=== PATIENT | male | born 1995 | race Caucasian/White ===

== ENCOUNTER 2019-04-24 21:45 | Emergency (ER) | payer OTHER ==
[~2019-04-24] VITALS: Ht 165.1 cm; Wt 88.5 kg
[~2019-04-24 21:45] MED LIST: IBUPROFEN 800800 MG PO; LEVSIN0.125 MG PO; ONDANSETRON ODT8 MG PO; PRILOSEC OTC20 MG PO
[2019-04-24 22:22] LABS: ABSOLUTE NEUTROPHILS 5.7 thou/uL (1.4-8.2); BASOPHILS 1.1 % (0.0-2.0); EOSINOPHILS 0.8 % (0.0-3.0); HEMATOCRIT 47.4 % (42.0-52.0); HEMOGLOBIN 16.1 gm/dL (14.0-18.0); LYMPHOCYTES 36.2 % (24.0-44.0); MCH 28.5 pg (26.0-34.0); MCHC 33.9 g/dL (28.0-37.0); MONOCYTES 8.9 % (1.0-8.0); PLATELET COUNT 183 thou/uL (150-400); RBC 5.64 mil/uL (4.50-6.00); RDW 13.6 % (10.5-14.5); WBC 11.8 thou/uL (4.0-11.0)
[2019-04-24 22:41] LABS: ANION GAP 12 mmol/L (7-16); BUN 14 mg/dL (7-18); CHLORIDE 101 mmol/L (98-107); CO2 25 mmol/L (21-32); CREATININE 0.7 mg/dL (0.7-1.3); GLUCOSE 95 mg/dL (74-106); POTASSIUM 4.1 mmol/L (3.5-5.1); SODIUM 138 mmol/L (136-145)
[2019-04-24 22:52] LABS: ALBUMIN 4.2 g/dL (3.4-5.0); LIPASE 126 U/L (73-393); SGOT 22 U/L (15-37); SGPT 39 U/L (30-65); TOTAL BILIRUBIN 0.3 mg/dL (<0.1-1.0); TOTAL PROTEIN 7.8 g/dL (6.4-8.2); TROPONIN-I <0.06 ng/mL (<0.06)
[2019-04-24 22:56] LABS: URINE BILIRUBIN NEGATIVE (Negative); URINE BLOOD NEGATIVE (Negative); URINE CLARITY CLEAR; URINE COLOR YELLOW; URINE GLUCOSE-RANDOM* NEGATIVE (Negative); URINE KETONES NEGATIVE (Negative); URINE LEUKOCYTES-REFLEX NEGATIVE (Negative); URINE NITRITE-REFLEX NEGATIVE (Negative); URINE PROTEIN (DIPSTICK) NEGATIVE (Negative); URINE SPECIFIC GRAVITY 1.015 (1.005-1.035); URINE UROBILINOGEN 0.2 E.U./dl (0.2-1.0)
[2019-04-24 23:05] LABS: AMP/METHAMP Negative (Negative); BARBITURATES Negative (Negative); BENZODIAZEPINES Negative (Negative); COCAINE Negative (Negative); METHADONE Negative (Negative); OPIATES Negative (Negative); PCP Negative (Negative)
[2019-04-25 00:46] VITALS: BP 124/86
--- NOTE | 2019-04-25 09:17 | EKG ---
[address] [place] [address] ELECTROCARDIOGRAM REPORT Name: MICHAEL CHAVEZ Room #: [facility]#: [id number] Admission: 04/24/19 Attend Phys: Discharge: 04/25/19 Date of : [birth year] Report #: [id number] THIS REPORT FOR: //name// [facility] ED Test Date: 2019-04-24 Test Time: 21:52:00 Pat Name: MICHAEL CHAVEZ Department: Room: Gender: Wringer Operator: : 1995 Requested By: Lewis Woo Order Number: [id number] MD: Matthew Ibarra Measurements Intervals [place] Rate: 66 P: 35 AR: 166 QRS: 77 QRSD: 107 T: 60 QT: 395 QTc: 414 Interpretive Statements Sinus rhythm with sinus arrhythmia Normal tracing No previous ECG available for comparison Electronically Signed On 04-25-2019 9:17:39 CDT by Matthew Ibarra [email or web address] <ELECTRONICALLY SIGNED> By: Matthew Ibarra MD, [facility] 04/25/19 [id number] Matthew Ibarra MD, FACC /EPI
== END 2019-04-25 00:48 | disposition home or self-care (01) ==
LOC: ER 21:45
PROVIDERS: Emergency Medicine
DX: R10.13 Epigastric pain (principal); R10.10 Upper abdominal pain, unspecified; K21.9 Gastro-esophageal reflux disease without esophagitis; Z88.5 Allergy status to narcotic agent